=== PATIENT | female | born 1985 | race Caucasian/White ===

== ENCOUNTER → 2020-08-23 13:05 | Outpatient (BNVA) | payer MEDICAID, SELFPAY | PROVIDERS: PCP Family Medicine; Visit Provider Physician Assistant | DX: Z76.89 Persons encountering health services in other specified circumstances (principal) ==

== ENCOUNTER 2020-11-17 07:46 | Outpatient (REF) | payer MEDICAID, SELFPAY ==
[2020-11-17 09:46] LABS: MANUAL DIFF FLAG NO
[2020-11-17 09:56] LABS: Basophils Percent Auto 0.7 % (0-2); Eosinophils Absolute Auto 0.1 X10*3/uL (0.0-0.4); Eosinophils Percent Auto 2.2 % (0-4); Hematocrit 34.6 % (37-47); Hemoglobin 11.1 g/dl (12.0-16.0); Imm Gran Abs Auto 0.01 X10*3/uL (0.00-0.03); Imm Gran Pct Auto 0.2 % (0.0-0.4); Lymphocytes Absolute Auto 2.3 X10*3/uL (1.2-4.9); Lymphocytes Percent Auto 39.7 % (20-40); Mean Corpuscular HGB Conc 32.1 g/dl (31.0-35.0); Mean Corpuscular Hemoglobin 29.5 pg (27.0-33.0); Mean Platelet Volume 10.4 fL (9.4-12.3); Monocytes Absolute Auto 0.5 X10*3/uL (0.1-1.2); Monocytes Percent Auto 8.7 % (2-11); Neutrophils Absolute Auto 2.9 X10*3/uL (2.0-8.3); Neutrophils Percent Auto 48.5 % (45-73); Platelet Count 280 X10*3/uL (160-400); Red Blood Count 3.76 X10*6/uL (4.20-5.50); Red Cell Distribution Width 13.9 % (11.0-16.0); White Blood Count 5.9 X10*3/uL (4.8-10.8)
[2020-11-17 10:43] LABS: Alanine Aminotransferase 10 U/L (0-31); Albumin Level 4.6 g/dL (3.5-5.0); Alkaline Phosphatase 65 U/L (39-117); Anion Gap 15 (12-20); Aspartate Amino Transferase 17 U/L (5-31); Bilirubin Total 0.2 mg/dL (0.0-1.0); Blood Urea Nitrogen 11 mg/dL (9-16); Calcium 9.3 mg/dL (8.4-10.2); Carbon Dioxide 24 mmol/L (22-29); Chloride 108 mmol/L (96-108); Estimated Glomerular Filt Rate > 60; Glucose Random 84 mg/dL (60-115); Potassium 4.1 mmol/L (3.3-5.1); Sodium 143 mmol/L (135-145); Total Protein 7.7 g/dL (6.5-8.0)
== END 2020-11-17 07:47 | disposition home or self-care (01) ==
LOC: HO.LAB 07:46
PROVIDERS: Visit Provider Physician Assistant
DX: R10.13 Epigastric pain (principal); R10.11 Right upper quadrant pain; K21.9 Gastro-esophageal reflux disease without esophagitis; I10 Essential (primary) hypertension; K64.9 Unspecified hemorrhoids; R74.01 Elevation of levels of liver transaminase levels; R14.0 Abdominal distension (gaseous); E04.8 Other specified nontoxic goiter; Z79.899 Other long term (current) drug therapy
CPT/HCPCS: 36415; 80053; 85025; 99212

== ENCOUNTER 2020-12-02 14:16 | Outpatient (REF) | payer MEDICAID, SELFPAY | END 2020-12-02 14:17 | disposition home or self-care (01) | LOC: HO.LNP 14:16 | PROVIDERS: Visit Provider Physician Assistant | DX: A04.8 Other specified bacterial intestinal infections (principal) | CPT/HCPCS: 87338 ==

== ENCOUNTER 2020-12-06 10:55 | Outpatient (REF) | payer MEDICAID, SELFPAY ==
[2020-12-06 17:09] LABS: CT PCR NOT DETECTED (Not Detect.); NG PCR NOT DETECTED (Not Detect.)
[2020-12-07 09:12] LABS: BV Int Neg Control Negative (Negative); BV Int Pos Control Positive (Positive)
== END 2020-12-06 10:56 | disposition home or self-care (01) ==
LOC: HO.LAB 10:55
PROVIDERS: Visit Provider Advanced Practice Midwife
DX: N94.9 Unspecified condition associated with female genital organs and menstrual cycle (principal); R10.2 Pelvic and perineal pain
CPT/HCPCS: 87480; 87491; 87510; 87591; 87660; 99212

== ENCOUNTER → 2020-12-22 09:35 | Outpatient (BNVA) | payer MEDICAID, SELFPAY | PROVIDERS: Visit Provider Physician Assistant | DX: K21.9 Gastro-esophageal reflux disease without esophagitis (principal) | CPT/HCPCS: 99212 ==

== ENCOUNTER 2021-01-02 14:09 | Outpatient (REF) | payer MEDICAID, SELFPAY ==
[2021-01-02 15:29] LABS: Glucose Urine UA NEG (NEG); Leukocyte Esterase Urine NEG (NEG); Nitrite Urine NEG (NEG); PH 6.5 (5.0-8.0); Specific Gravity - Urine <= 1.005 (1.005-1.025); Urine Blood NEG (NEG); Urine Ketones NEG (NEG); Urine Protein NEG (NEG-TRACE)
[2021-01-02 15:31] LABS: Appearance Urine CLEAR; Color Urine STRAW
== END 2021-01-02 14:10 | disposition home or self-care (01) ==
LOC: HO.LAB 14:09
PROVIDERS: Visit Provider Advanced Practice Midwife
DX: R10.2 Pelvic and perineal pain (principal)
CPT/HCPCS: 81003

== ENCOUNTER 2021-01-09 11:47 | Outpatient (REF) | payer MEDICAID, SELFPAY ==
--- NOTE | ~2021-01-09 | US_ITS ---
EXAMINATION: PELVIC ULTRASOUND CLINICAL INFORMATION: Pain. COMPARISON: Previous CT of the pelvis and abdomen May 2018 and pelvic ultrasound December 2017. TECHNIQUE: Transabdominal and transvaginal pelvic ultrasound was performed. Transvaginal exam was performed for better visualization of the uterus and ovaries. FINDINGS: Uterus is anteverted and measures 10.5 x 4.2 x 5.2 cm in dimension. No focal uterine lesion is seen. Endometrial thickness is normal measuring 1.2 cm. There are nabothian cysts in the cervix. The right ovary is enlarged measuring 4.4 x 3.4 x 4.5 cm in dimension, volume 43 mL. There is a 3.8 x 3.3 x 2.6 cm complex right ovarian cyst with multiple reticulations. This may represent a hemorrhagic cyst. The left ovary is normal-appearing and measures 4.2 x 2.1 x 2.5 cm. There are prominent left adnexal vessels questionable for pelvic congestion. There is no fluid in the pelvis. US/US pelvic and transvaginal IMPRESSION: Enlarged right ovary. 3.8 x 3.3 x 2.6 cm complex right ovarian cyst with multiple reticulations. This may represent a hemorrhagic cyst. Prominent left pelvic vessels questionable for pelvic congestion.
== END 2021-01-09 11:48 | disposition home or self-care (01) ==
LOC: HO.US 11:47
PROVIDERS: Visit Provider Advanced Practice Midwife
DX: R10.2 Pelvic and perineal pain (principal)
CPT/HCPCS: 76830; 76856

== ENCOUNTER → 2021-01-11 11:22 | Outpatient (BNVA) | payer MEDICAID, SELFPAY | PROVIDERS: Visit Provider Advanced Practice Midwife ==

== ENCOUNTER 2021-02-21 07:35 | Outpatient (REF) | payer MEDICAID, SELFPAY ==
[2021-02-21 11:43] LABS: MANUAL DIFF FLAG NO
[2021-02-21 12:00] LABS: Basophils Percent Auto 0.5 % (0-2); Eosinophils Absolute Auto 0.1 X10*3/uL (0.0-0.4); Eosinophils Percent Auto 2.6 % (0-4); Hematocrit 33.3 % (37-47); Hemoglobin 10.7 g/dl (12.0-16.0); Imm Gran Abs Auto 0.01 X10*3/uL (0.00-0.03); Imm Gran Pct Auto 0.2 % (0.0-0.4); Lymphocytes Absolute Auto 1.7 X10*3/uL (1.2-4.9); Lymphocytes Percent Auto 39.6 % (20-40); Mean Corpuscular HGB Conc 32.1 g/dl (31.0-35.0); Mean Corpuscular Hemoglobin 29.2 pg (27.0-33.0); Mean Corpuscular Volume 90.7 fL (80-98); Mean Platelet Volume 10.5 fL (9.4-12.3); Monocytes Absolute Auto 0.4 X10*3/uL (0.1-1.2); Monocytes Percent Auto 10.5 % (2-11); Neutrophils Percent Auto 46.6 % (45-73); Platelet Count 275 X10*3/uL (160-400); Red Blood Count 3.67 X10*6/uL (4.20-5.50); Red Cell Distribution Width 13.9 % (11.0-16.0); White Blood Count 4.2 X10*3/uL (4.8-10.8)
[2021-02-21 12:28] LABS: HCG Quantitative < 2 mIU/mL
[2021-02-21 12:29] LABS: Alanine Aminotransferase 9 U/L (0-31); Albumin Level 4.4 g/dL (3.5-5.0); Alkaline Phosphatase 69 U/L (39-117); Anion Gap 12 (12-20); Aspartate Amino Transferase 17 U/L (5-31); Bilirubin Total 0.5 mg/dL (0.0-1.0); Blood Urea Nitrogen 12 mg/dL (9-16); Calcium 9.2 mg/dL (8.4-10.2); Carbon Dioxide 24 mmol/L (22-29); Chloride 110 mmol/L (96-108); Estimated Glomerular Filt Rate > 60; Glucose Random 79 mg/dL (60-115); Potassium 4.1 mmol/L (3.3-5.1); Sodium 142 mmol/L (135-145); Total Protein 7.5 g/dL (6.5-8.0)
== END 2021-02-21 07:36 | disposition home or self-care (01) ==
LOC: HO.LAB 07:35
PROVIDERS: Visit Provider Physician Assistant
DX: R10.11 Right upper quadrant pain (principal); R74.01 Elevation of levels of liver transaminase levels; R11.2 Nausea with vomiting, unspecified; Z78.9 Other specified health status
CPT/HCPCS: 36415; 80053; 84702; 85025

== ENCOUNTER 2021-06-14 11:14 | Day surgery (SDC) | payer MEDICAID, SELFPAY ==
--- NOTE | 2021-06-13 10:33 | HO.ANESPROP2 ---
Documented by User: Lisset Fortune NP 06/13/21 10:36 HPI - Anesthesia Eval Consult details Narrative: 35yo F for Upper Endoscopy PMFSH Active Problems Active Problems: All Active Problems (Updated 02/21/21 @ 08:00 by Violeta Phillips PA-C) Epigastric pain (Acute) Vaginal burning (Acute) Pelvic pain in female (Acute) Complex ovarian cyst (Acute) Nausea and vomiting (Acute) Poor historian (Acute) Diarrhea (Acute) Bloating (Acute) Hemorrhoids (Acute) HTN (hypertension) (Acute) Acid reflux (Acute) Past Medical History Medical History Acid reflux Bloating Hemorrhoids Hernia HTN (hypertension) Family History Family History Mother Hypertension Maternal Grandmother Colon cancer Surgical History Surgical History H/O abdominoplasty H/O colonoscopy History of esophagogastroduodenoscopy (EGD) Hx of tubal ligation Social History Social History Household Members: Children Alcohol intake: never Patient Tobacco Use Status: Former Tobacco user Quit Date: 2009 Tobacco use type: Cigarette Years Smoked: 1 Smoked in Last 30 Days: No Use of substances other than those prescribed or required for medical reasons: No Are you DNR?: No Advance Directives: No Advance Directives Information Provided: No Current occupational status: employed Current occupation: [employer] Allergies Allergy/AdvReac Type Severity Reaction Status Date / Time No Known Allergies Allergy Verified 06/14/21 11:53 [No Known Allergies*] Home Medications Medication Instructions Recorded Confirmed Last Taken Type amlodipine 5 mg tablet 5 mg PO DAILY 11/17/20 03/20/21 Unknown History esomeprazole magnesium 40 mg 40 mg PO DAILY 11/17/20 03/20/21 Unknown History capsule,delayed release aspirin 81 mg tablet,delayed 81 mg PO DAILY 12/06/20 03/20/21 06/09/21 History release Exam Exam Date and Time: June 13, 2021 1033 Pertinent Lab Results Pertinent Lab Results: Laboratory Tests 02/21/21 02/21/21 10:50 10:50 WBC 4.2 L Hgb 10.7 L Hct 33.3 L Plt Count 275 Sodium 142 Potassium 4.1 Chloride 110 H Carbon Dioxide 24 BUN 12 Creatinine 0.74 Assessment and Plan Assessment Anesthesia Assessment: Chart Reviewed Documented by User: Lori Marrufo MD 06/14/21 12:25 PMFSH Past Medical History Medical History Acid reflux Bloating Hemorrhoids Hernia HTN (hypertension) Functional capacity: independent ambulation Patient : No Family History Family History Mother Hypertension Maternal Grandmother Colon cancer Family history of problems with anesthesia: No Surgical History Surgical History H/O abdominoplasty H/O colonoscopy History of esophagogastroduodenoscopy (EGD) Hx of tubal ligation Social History Social History Household Members: Children Alcohol intake: never Patient Tobacco Use Status: Former Tobacco user Quit Date: 2009 Tobacco use type: Cigarette Years Smoked: 1 Smoked in Last 30 Days: No Use of substances other than those prescribed or required for medical reasons: No Are you DNR?: No Advance Directives: No Advance Directives Information Provided: No Current occupational status: employed Current occupation: [employer] Allergies Allergy/AdvReac Type Severity Reaction Status Date / Time No Known Allergies Allergy Verified 06/14/21 11:53 [No Known Allergies*] Home Medications Medication Instructions Recorded Confirmed Last Taken Type amlodipine 5 mg tablet 5 mg PO DAILY 11/17/20 03/20/21 Unknown History esomeprazole magnesium 40 mg 40 mg PO DAILY 11/17/20 03/20/21 Unknown History capsule,delayed release aspirin 81 mg tablet,delayed 81 mg PO DAILY 12/06/20 03/20/21 06/09/21 History release Exam Airway Mallampati Class: II TM Dist: >3cm Heart: RRR Lungs: CTA Assessment and Plan Final Anesthetic Review Family History of Problems with Anesthesia: No
[2021-06-14 11:56] VITALS: BMI 24.1
--- NOTE | 2021-06-14 11:58 | MHC.SHP ---
Pre-Procedural Eval Section A Date of Service: 06/14/21 Section B Chief Complaint: nausea with vomiting Details of Present Illness: CRC in family Relevant Family History (Specify if Yes): Yes Relevant Social History: None Present Medications: see Short Stay Collaborative assessment Medical History: Significant History (Acid reflux Bloating Hemorrhoids Hernia HTN (hypertension)) History of Previous Operations: Relevant previous surgery/procedure and date(s) (H/O abdominoplasty H/O colonoscopy History of esophagogastroduodenoscopy (EGD) Hx of tubal ligation) Allergies: Allergies Allergy/AdvReac Type Severity Reaction Status Date / Time No Known Allergies Allergy Verified 06/14/21 11:53 [No Known Allergies*] Review of Systems Sugical H&P ROS: Negative: Constitution, Cardiovascular, Respiratory, Neurological, Psychiatric, Hem-Onc, Allergic/Immunologic, Gastrointestinal, Genitourinary, Musculoskeletal, Integumentary, Endocrine and Eyes/Ears/Nose/Throat Exam Surgical H&P Exam: Normal: HEENT, Normal: Heart, Normal: Lungs, Normal: Extremities, Normal: Abdomen, Normal: Skin and Normal: Neurological Plan Diagnosis/Plan: Unchanged I have reviewed the history and physical and performed a pertinent physical examination on my patient. No changes have occurred unless specified.
[2021-06-14 12:15] VITALS: BP 139/96; PULSE 95; RESP 16; TEMP 36.8; O2SAT 100
[2021-06-14] MEDS: Lactated Ringers 1,000 ML 100 ML IVCONT (12:16)
--- NOTE | 2021-06-14 12:42 | P.BOP_ITS ---
Brief Operative Note Date of Service: 06/14/21 Pre-op diagnosis: screening Post-op diagnosis: same Procedure: see op note Surgeon: Lindsay Macias MD Anesthesia: MAC Was an Photocomposition Keyboard Operator used for this Procedure?: No Estimated blood loss (mL): 0 Condition: stable Disposition: PACU
--- NOTE | 2021-06-14 12:42 | W.PM.OPN ---
Operative Note Operative Note Date of Service: 06/14/21 Narrative: Procedure Description: EGD FLEXIBLE TRANSORAL UPPER GASTROINTESTINAL ENDOSCOPY UPPER ENDOSCOPY Consent: Indications for the procedure and potential complications of bleeding, perforation, reaction to medications and missed diagnosis were discussed with the patient and informed consent was obtained. Instrument: Olympus GIF H 190 J mid size upper endoscope Monitoring: Vital signs and clinical assessment, continuous EKG monitoring, Pulse oximetry, Carbon Dioxide monitoring and blood pressure monitoring were done throughout the procedure. Procedure: The patient was placed in the left lateral decubitis position and pre-procedure medications were administered and a bite block was placed. The endoscope was inserted into the mouth and advanced under direct vision to the third part of duodenum. A careful inspection was made as the upper endoscope was withdrawn including a retroflexed examination of the proximal stomach; Findings and interventions are described below. Findings: Larynx:normal Esophagus: GE junction at 38 cm, diaphragm hiatus at 38 cm, LA grade A esophagitis note,d bx taken from GEJ and random esophagus. Small esophageal inlet patch noted Stomach: Patchy gastric erythema and atrophic areas. Biopsies were obtained. Grade 2 flap valve on retroflexed examination of the cardia. Duodenum: Normal bulb and descending duodenum, bx taken Intervention: Biopsies as noted above Impression/Findings: gastritis esophagitis inlet patch of esophagus PLAN: await bx results check PPI compliance
--- NOTE | 2021-06-14 13:01 | HO.ANESPROP2 ---
[facility] Active Problems Active Problems: All Active Problems (Updated 02/21/21 @ 08:00 by Violeta Phillips PA-C) Epigastric pain (Acute) Vaginal burning (Acute) Pelvic pain in female (Acute) Complex ovarian cyst (Acute) Nausea and vomiting (Acute) Poor historian (Acute) Diarrhea (Acute) Bloating (Acute) Hemorrhoids (Acute) HTN (hypertension) (Acute) Acid reflux (Acute) Past Medical History Medical History Acid reflux Bloating Hemorrhoids Hernia HTN (hypertension) Functional capacity: independent ambulation Family History Family History Mother Hypertension Maternal Grandmother Colon cancer Family history of problems with anesthesia: No Surgical History Surgical History H/O abdominoplasty H/O colonoscopy History of esophagogastroduodenoscopy (EGD) Hx of tubal ligation History of Problems with Anesthesia: No Social History Social History Household Members: Children Alcohol intake: never Patient Tobacco Use Status: Former Tobacco user Quit Date: 2009 Tobacco use type: Cigarette Years Smoked: 1 Smoked in Last 30 Days: No Use of substances other than those prescribed or required for medical reasons: No Are you DNR?: No Advance Directives: No Advance Directives Information Provided: No Patient : No Current occupational status: employed Current occupation: [employer] Allergies Allergy/AdvReac Type Severity Reaction Status Date / Time No Known Allergies Allergy Verified 06/14/21 11:53 [No Known Allergies*] Active Medications: Current Medications Lactated Ringer's (Lr) 1,000 mls @ 100 mls/hr IVCONT .Q10H WAYNE Last Admin: 06/14/21 12:16 Dose: 100 mls/hr Documented by: Home Medications Medication Instructions Recorded Confirmed Last Taken Type amlodipine 5 mg tablet 5 mg PO DAILY 11/17/20 03/20/21 Unknown History esomeprazole magnesium 40 mg 40 mg PO DAILY 11/17/20 03/20/21 Unknown History capsule,delayed release aspirin 81 mg tablet,delayed 81 mg PO DAILY 12/06/20 03/20/21 06/09/21 History release Exam Exam Date and Time: June 14, 2021 1301 Height,Weight and Vital Signs: Height 5 ft 1 in Weight 58.06 kg Last Vital Signs Temp 98.2 F 06/14/21 12:15 Pulse 95 06/14/21 12:15 Resp 16 06/14/21 12:15 BP 139/96 H 06/14/21 12:15 Pulse Ox 100 06/14/21 12:15 Airway Mallampati Class: II TM Dist: >3cm Neck ROM: Full Heart: RRR Lungs: CTA Assessment and Plan Final Anesthetic Review Family History of Problems with Anesthesia: No History of Problems with Anesthesia: No
[2021-06-14 13:14] VITALS: BP 127/68; PULSE 109; RESP 16; TEMP 37.4; O2SAT 98
[2021-06-14 13:40] VITALS: BP 159/75; PULSE 82; RESP 18; TEMP 37.4; O2SAT 99
--- NOTE | 2021-06-14 14:24 | HO.POSTANES ---
Post Anesthesia Evaluation Post Anesthesia Evaluation Vital Signs: Vital Signs Temp Pulse Resp BP Pulse Ox 06/14/21 13:40 99.3 F 82 18 159/75 H 99 06/14/21 13:14 99.3 F 109 H 16 127/68 98 06/14/21 12:15 98.2 F 95 16 139/96 H 100 Anesthesia: Monitored Mental Status: Awake Pain Control: Satisfactory Nausea/Vomiting: None Hydration: Adequate Anesthesia-Related Issues: No Anes. Related Issues
== END 2021-06-14 14:22 | disposition home or self-care (01) ==
PROVIDERS: Visit Provider Internal Medicine Gastroenterology
PROC: 0DJ08ZZ Inspection of Upper Intestinal Tract, Via Natural or Artificial Opening Endoscopic (ICD-10-PCS; CPT 43235; principal; 2021-06-14 12:40)
DX: K29.50 Unspecified chronic gastritis without bleeding (principal); K20.90 Esophagitis, unspecified without bleeding; K21.9 Gastro-esophageal reflux disease without esophagitis; K44.9 Diaphragmatic hernia without obstruction or gangrene; Q39.8 Other congenital malformations of esophagus; I10 Essential (primary) hypertension; Z79.82 Long term (current) use of aspirin; Z79.899 Other long term (current) drug therapy; Z87.891 Personal history of nicotine dependence
CPT/HCPCS: 43239; 88305; 88342

== ENCOUNTER → 2021-11-15 13:36 | Outpatient (BNVA) | payer MEDICAID, SELFPAY | PROVIDERS: Visit Provider Physician Assistant | DX: K22.70 Barrett's esophagus without dysplasia (principal); K59.00 Constipation, unspecified | CPT/HCPCS: 99212 ==

== ENCOUNTER → 2021-11-27 13:41 | Outpatient (BNVA) | payer MEDICAID, SELFPAY | PROVIDERS: Visit Provider Physician Assistant | DX: Z13.89 Encounter for screening for other disorder (principal) ==

== ENCOUNTER 2021-11-27 14:15 | Outpatient (REF) | payer MEDICAID, SELFPAY ==
[2021-11-29 08:34] LABS: H Pylori Breath Test Negative (Negative)
== END 2021-11-27 14:16 | disposition home or self-care (01) ==
LOC: HO.LNP 14:15
PROVIDERS: Visit Provider Physician Assistant
DX: Z11.0 Encounter for screening for intestinal infectious diseases (principal)
CPT/HCPCS: 83013

== ENCOUNTER → 2021-11-28 13:23 | Outpatient (BNVA) | payer MEDICAID, SELFPAY | PROVIDERS: Visit Provider Physician Assistant | DX: Z13.89 Encounter for screening for other disorder (principal) ==

== ENCOUNTER → 2022-03-15 13:53 | Outpatient (BNVA) | payer MEDICAID, SELFPAY | PROVIDERS: PCP Internal Medicine; Visit Provider Physician Assistant | DX: K52.9 Noninfective gastroenteritis and colitis, unspecified (principal); K59.00 Constipation, unspecified; K22.70 Barrett's esophagus without dysplasia; R19.7 Diarrhea, unspecified; K64.9 Unspecified hemorrhoids; K21.9 Gastro-esophageal reflux disease without esophagitis | CPT/HCPCS: 99212 ==

== ENCOUNTER → 2022-04-26 12:25 | Outpatient (BNVA) | payer MEDICAID, SELFPAY | PROVIDERS: PCP Internal Medicine; Referring Provider Internal Medicine; Visit Provider Physician Assistant | DX: K21.9 Gastro-esophageal reflux disease without esophagitis (principal); K59.00 Constipation, unspecified; K22.70 Barrett's esophagus without dysplasia; Z79.899 Other long term (current) drug therapy | CPT/HCPCS: 99212 ==

== ENCOUNTER 2022-10-16 10:26 | Day surgery (SDC) | payer MEDICAID, SELFPAY ==
[2022-09-13 10:43] VITALS: BMI 25.7
[2022-10-16 11:00] VITALS: BP 123/85; PULSE 87; RESP 15; TEMP 36.7; O2SAT 99
[2022-10-16] MEDS: Lactated Ringers 1,000 ML 50 ML IVCONT (11:14)
--- NOTE | 2022-10-16 11:41 | MHC.SHP ---
Pre-Procedural Eval Section A Date of Service: 10/16/22 Section B Chief Complaint: barretts,reflux Details of Present Illness: 37y.o F with bx proven BE at [facility] albeit in background of esophagitis here for EGD +/- rodriguez PMH: Acid reflux Bloating Hemorrhoids Hernia HTN (hypertension) Surg Hx: H/O abdominoplasty H/O colonoscopy History of esophagogastroduodenoscopy (EGD) Hx of tubal ligation Relevant Family History (Specify if Yes): No Relevant Social History: None Present Medications: see Short Stay Collaborative assessment Medical History: Significant History (as above ) History of Previous Operations: Relevant previous surgery/procedure and date(s) (as above ) Allergies: Allergies Allergy/AdvReac Type Severity Reaction Status Date / Time No Known Allergies Allergy Verified 10/16/22 11:21 [No Known Allergies*] Review of Systems Review of Systems Comment: Ten point ROS negative Exam Exam Comment: Gen appear: No acute distress HEENT: no icterus Chest: No overt resp distress Abd: soft, nontender, nondistended Psych: Stable affect, answering questions appropriately Neuro: A/Ox3 noted to move all extremities spontaneously Ext: no peripheral edema Plan Diagnosis/Plan: Unchanged I have reviewed the history and physical and performed a pertinent physical examination on my patient. No changes have occurred unless specified. Time Spent With Patient Time: Total time managing care of this patient today ____ minutes.
--- NOTE | 2022-10-16 12:32 | P.OP_ITS ---
Operative Note Operative Note Date of Service: 10/16/22 Narrative: Procedure: Esophagogastroduodenoscopy Endoscopist: Toyin Zambrano MD Indication: Tran's esophagus Anesthesia Provider: Dr Betsy Vasquez Anesthesia Type: MAC ?? EGD Procedure:?? The procedure, indications, preparation and potential complications were rev iewed with the patient, who indicated understanding and gave written informed consent to proceed. A conference interpreter assisted with the encounter. A physical exam was performed. A distal attachment cap was affixed to the tip of the gastroscope and it was the endoscope was then introduced through the mouth, and advanced to the second part of duodenum. The mucosa was carefully examined on slow withdrawal of the endoscope. The patient tolerated the procedure well. There were no immediate complications.? ? EGD Findings:? * Esophagus:? The Z line was at 38 cm. [place] pink colored mucosa extended beyond the Z line to 36 cm. Villous changes were noted on high definition white light and narrow band imaging. There was also a 1 cm nodule seen just at the GEJ at 38 cm. Cold forceps biopsies were taken from the nodule, 37 cm and 36 cm. Additionally, WATS-3D sampling was obtained and sent to [facility]. * Stomach:? Normal mucosa was noted in the stomach. Random gastric biopsies were taken to rule out H Pylori infection. * Duodenum:? Normal mucosa was noted in the whole of the examined duodenum. Biopsies were taken from duodenal bulb and second portion of the duodenum to rule out celiac sprue. ? EGD Impressions:? * Esophageal nodule (biopsy) (wats-3d) * R/o tran's with dysplasia * Normal stomach (biopsy) * Normal duodenum (biopsy) ?? Recommendations:?? * Follow biopsy results. Our office will call or send a letter with results within 7-10 days. * If presence of dysplasia is confirmed, pt will need EMR +/- ablation for treatment. * Continue PPI therapy. * Avoid NSAIDs. Above has been reviewed with the patient. Relevant educational hand outs were provided at discharge.
[2022-10-16 12:36] VITALS: BP 94/55; PULSE 98; RESP 16; TEMP 36.2; O2SAT 100
--- NOTE | 2022-10-16 12:49 | P.CONAN_ITS ---
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 (Acute) Constipated (Acute) Gastroenteritis (Acute) Bloating (Acute) Hemorrhoids (Acute) HTN (hypertension) (Acute) Acid reflux (Acute) Past Medical History Medical History Acid reflux Bloating Hemorrhoids Hernia HTN (hypertension) Family History Family History Mother Hypertension Maternal Grandmother Colon cancer Family history of problems with anesthesia: No Surgical History Surgical History H/O colonoscopy History of esophagogastroduodenoscopy (EGD) Hx of hernia repair Hx of tubal ligation History of Problems with Anesthesia: No Social History Social History Household Members: Children Alcohol intake: never Patient Tobacco Use Status: Former Tobacco user Quit Date: 2009 Tobacco use type: Cigarette Years Smoked: 1 Use of substances other than those prescribed or required for medical reasons: No Are you DNR?: No Advance Directives: No Advance Directives Information Provided: Yes Current occupational status: employed Current occupation: [employer] Allergies Allergy/AdvReac Type Severity Reaction Status Date / Time No Known Allergies Allergy Verified 10/16/22 11:21 [No Known Allergies*] Active Medications: Current Medications Lactated Ringer's (Lr) 1,000 mls @ 50 mls/hr IVCONT .Q20H WAYNE Last Admin: 10/16/22 11:14 Dose: 50 mls/hr Home Medications Medication Instructions Recorded Confirmed Last Taken Type amlodipine 5 mg tablet 10 mg PO DAILY 11/17/20 10/16/22 Unknown History aspirin 81 mg tablet,delayed 81 mg PO DAILY 12/06/20 10/16/22 10/09/22 History release Exam Exam Date and Time: October 16, 2022 1249 Height,Weight and Vital Signs: Height 5 ft 1 in Weight 61.689 kg Last Vital Signs Temp 98.0 F 10/16/22 11:00 Pulse 87 10/16/22 11:00 Resp 15 10/16/22 11:00 BP 123/85 10/16/22 11:00 Pulse Ox 99 10/16/22 11:00 O2 Del Method 10/16/22 11:00 Airway Mallampati Class: II TM Dist: >3cm Neck ROM: Full Heart: rr Lungs: cta Assessment and Plan Final Anesthetic Review Family History of Problems with Anesthesia: No History of Problems with Anesthesia: No ASA Class: II Final Preanesthetic Review: No Changes in Pt Med Stat, Meds/Allgs Chart Reviewed, Consent Obtained/Reviewed and Anes Risks/Benef Reviewed Patient Risk: Low Procedure Risk: Low Anesthetic Plan Anesthetic Plan: MAC: Disposition: Standard PACU
[2022-10-16 12:51] VITALS: BP 101/73; PULSE 101; RESP 16; O2SAT 98
--- NOTE | 2022-10-16 12:52 | P.CONAN_ITS ---
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 (Acute) Constipated (Acute) Gastroenteritis (Acute) Bloating (Acute) Hemorrhoids (Acute) HTN (hypertension) (Acute) Acid reflux (Acute) Past Medical History Medical History Acid reflux Bloating Hemorrhoids Hernia HTN (hypertension) Family History Family History Mother Hypertension Maternal Grandmother Colon cancer Family history of problems with anesthesia: No Surgical History Surgical History H/O colonoscopy History of esophagogastroduodenoscopy (EGD) Hx of hernia repair Hx of tubal ligation History of Problems with Anesthesia: No Social History Social History Household Members: Children Alcohol intake: never Patient Tobacco Use Status: Former Tobacco user Quit Date: 2009 Tobacco use type: Cigarette Years Smoked: 1 Use of substances other than those prescribed or required for medical reasons: No Are you DNR?: No Advance Directives: No Advance Directives Information Provided: Yes Current occupational status: employed Current occupation: [employer] Allergies Allergy/AdvReac Type Severity Reaction Status Date / Time No Known Allergies Allergy Verified 10/16/22 11:21 [No Known Allergies*] Active Medications: Current Medications Lactated Ringer's (Lr) 1,000 mls @ 50 mls/hr IVCONT .Q20H WAYNE Last Admin: 10/16/22 11:14 Dose: 50 mls/hr Home Medications Medication Instructions Recorded Confirmed Last Taken Type amlodipine 5 mg tablet 10 mg PO DAILY 11/17/20 10/16/22 Unknown History aspirin 81 mg tablet,delayed 81 mg PO DAILY 12/06/20 10/16/22 10/09/22 History release Exam Exam Date and Time: October 16, 2022 1252 Height,Weight and Vital Signs: Height 5 ft 1 in Weight 61.689 kg Last Vital Signs Temp 97.2 F 10/16/22 12:36 Pulse 98 10/16/22 12:36 Resp 16 10/16/22 12:36 BP 94/55 L 10/16/22 12:36 Pulse Ox 100 10/16/22 12:36 O2 Del Method 10/16/22 12:36 O2 Flow Rate 4 10/16/22 12:36 Assessment and Plan Final Anesthetic Review Family History of Problems with Anesthesia: No History of Problems with Anesthesia: No NPO: Yes ASA Class: II Final Preanesthetic Review: No Changes in Pt Med Stat, Meds/Allgs Chart Reviewed, Consent Obtained/Reviewed and Anes Risks/Benef Reviewed Patient Risk: Low Procedure Risk: Low Anesthetic Plan Anesthetic Plan: MAC: Disposition: Standard PACU
[2022-10-16 13:06] VITALS: BP 116/82; PULSE 86; RESP 16; O2SAT 98
== END 2022-10-16 14:26 | disposition home or self-care (01) ==
PROVIDERS: PCP Internal Medicine; Visit Provider Internal Medicine
PROC: 0DJ08ZZ Inspection of Upper Intestinal Tract, Via Natural or Artificial Opening Endoscopic (ICD-10-PCS; CPT 43235; principal; 2022-10-16 11:30)
DX: K21.9 Gastro-esophageal reflux disease without esophagitis (principal); K22.70 Barrett's esophagus without dysplasia; K22.89 Other specified disease of esophagus; K20.80 Other esophagitis without bleeding; I10 Essential (primary) hypertension; K59.00 Constipation, unspecified; Z79.82 Long term (current) use of aspirin; Z79.899 Other long term (current) drug therapy; Z87.891 Personal history of nicotine dependence
CPT/HCPCS: 43235; 88305; 88342; J2250

== ENCOUNTER → 2022-10-29 14:07 | Outpatient (BNVA) | payer MEDICAID, SELFPAY | PROVIDERS: PCP Internal Medicine; Visit Provider Physician Assistant | DX: K22.70 Barrett's esophagus without dysplasia (principal); K20.90 Esophagitis, unspecified without bleeding; Z98.890 Other specified postprocedural states | CPT/HCPCS: 99212 ==

== ENCOUNTER 2023-01-10 14:24 | Outpatient (REF) | payer MEDICAID, SELFPAY ==
--- NOTE | ~2023-01-10 | US_ITS ---
EXAMINATION: MM DIAGNOSTIC DIGITAL BREAST TOMOSYNTHESIS, BILATERAL US DIAGNOSTIC ULTRASOUND BREAST, RIGHT CLINICAL INFORMATION: 37-year-old with proximally 1 month history upper right breast pain. No palpable mass or discharge. The lifetime risk of breast cancer based on the Tyrer-Cuzick Model is 8%. COMPARISON: Mammography and bilateral breast ultrasound 01/11/2017. TECHNIQUE: Digital breast tomosynthesis is performed in both the craniocaudal and mediolateral oblique views along with computer-aided detection (CAD). Synthesized 2D images are generated from the tomosynthesis. Ultrasound right breast is targeted to the areas of clinical concern using grayscale imaging and color Doppler without and with harmonics. Patient is able to point to the area at time of imaging. FINDINGS: The breasts are heterogeneously dense, which may obscure small masses (ACR BI-RADS breast composition Category c). There is mild bilateral decreased breast size and mild increased breast tissue density when compared with prior exam 2017 consistent with mild weight loss as confirmed with patient. There is no significant mass or architectural abnormality. No developing density or abnormal calcifications. No skin thickening or coarsening of the Jarrett's ligaments. The axilla are unremarkable. Ultrasound demonstrates no cystic or solid mass or architectural abnormality. No hyperemia. No focal duct ectasia. No skin thickening or edema tracking in soft tissue planes. Results are discussed with the patient at time of visit, using an hydraulic pile hammer operator. US/US breast RT limited IMPRESSION: -No mammographic evidence of malignancy or inflammatory changes. -Unremarkable right breast ultrasound. ASSESSMENT: BI-RADS 2: Benign RECOMMENDATION: 1. Patient's right mastodynia should be managed based on the clinical impression. 2. Otherwise, routine annual screening mammography. This patient's information was entered into a reminder system with a target due date for their next mammogram.
== END 2023-01-10 14:25 | disposition home or self-care (01) ==
LOC: HO.MAMMO 14:24
PROVIDERS: Absent Provider Internal Medicine; PCP Internal Medicine; Referring Provider Internal Medicine; Visit Provider Advanced Practice Midwife
DX: N64.4 Mastodynia (principal)
CPT/HCPCS: 76642; 77062; 77066

== ENCOUNTER 2023-05-20 13:57 | Outpatient (REF) | payer MEDICAID, SELFPAY ==
[2023-05-20 15:00] LABS: MANUAL DIFF FLAG NO
[2023-05-20 15:28] LABS: Basophils Percent Auto 0.6 % (0-2); Eosinophils Absolute Auto 0.2 X10*3/uL (0.0-0.4); Eosinophils Percent Auto 2.7 % (0-4); Hemoglobin 12.2 g/dl (12.0-16.0); Imm Gran Abs Auto 0.01 X10*3/uL (0.00-0.03); Imm Gran Pct Auto 0.1 % (0.0-0.4); Lymphocytes Absolute Auto 2.7 X10*3/uL (1.2-4.9); Lymphocytes Percent Auto 40.1 % (20-40); Mean Corpuscular Hemoglobin 30.3 pg (27.0-33.0); Mean Platelet Volume 10.3 fL (9.4-12.3); Monocytes Absolute Auto 0.5 X10*3/uL (0.1-1.2); Monocytes Percent Auto 7.2 % (2-11); Neutrophils Absolute Auto 3.3 x10*3/uL (2.0-8.3); Neutrophils Percent Auto 49.3 % (45-73); Platelet Count 253 X10*3/uL (160-400); Red Blood Count 4.02 X10*6/uL (4.20-5.50); Red Cell Distribution Width 13.2 % (11.0-16.0); White Blood Count 6.8 X10*3/uL (4.8-10.8)
[2023-05-20 16:01] LABS: Alanine Aminotransferase 9 U/L (0-31); Albumin Level 4.6 g/dL (3.5-5.0); Alkaline Phosphatase 61 U/L (39-117); Anion Gap 13 (12-20); Aspartate Amino Transferase 15 U/L (5-31); Bilirubin Total 0.3 mg/dL (0.0-1.0); Blood Urea Nitrogen 10 mg/dL (9-16); Calcium 9.5 mg/dL (8.4-10.2); Carbon Dioxide 22 mmol/L (22-29); Chloride 109 mmol/L (96-108); Estimated Glomerular Filt Rate > 60; Glucose Random 82 mg/dL (60-115); Potassium 3.9 mmol/L (3.3-5.1); Sodium 140 mmol/L (135-145); Total Protein 7.9 g/dL (6.5-8.0)
== END 2023-05-20 13:58 | disposition home or self-care (01) ==
LOC: HO.LAB 13:57
PROVIDERS: PCP Internal Medicine; Visit Provider Physician Assistant
DX: R10.11 Right upper quadrant pain (principal); K22.70 Barrett's esophagus without dysplasia; K21.9 Gastro-esophageal reflux disease without esophagitis
CPT/HCPCS: 36415; 80053; 85025; 99212

== ENCOUNTER 2023-05-20 13:57 | Outpatient (AMB) | payer MEDICAID, SELFPAY ==
--- NOTE | 2023-05-20 14:03 | MHC.OFFVIS ---
Intake Vital Signs 05/20/23 14:09 Height 5 ft 1 in Weight 130 lb BMI 24.6 BP 122/78 Blood Pressure Location Lt brachial Position Sitting Pulse 90 Intake Visit Reasons: follow up for Chronic GERD Intake Note: Patient follow up for Chronic GERD. Patient cc: abdominal pain, acid reflex, and constipation. Denies any other GI issues. Race And Sports Book Writer Required: No Race And Sports Book Writer Name: [facility] [place] Accompanied by: Self / Same As Patient Allergies No Known Allergies [No Known Allergies*] Allergy (Verified 05/20/23 14:03) HPI HPI Comments History of Present Illness Details 37-year-old female follows up with Gerd- she has acid- omeprazole Q am-- for the past couple weeks sx seem to be worse-no nausea-or vomiting RUQ pain seems to come and go today pain seems to be a bit better - very minor discomfort No nausea, vomiting, hematemesis, hematochezia fever or chills. PFSH Medical History Acid reflux Bloating Hemorrhoids Hernia HTN (hypertension) Surgical History Hx of hernia repair History of esophagogastroduodenoscopy (EGD) H/O colonoscopy Hx of tubal ligation Family History Mother Hypertension Maternal Grandmother Colon cancer Social History Household Members: Children Alcohol intake: never Patient Tobacco Use Status: Former Tobacco user Quit Date: 2009 Tobacco use type: Cigarette Years Smoked: 1 Current occupational status: employed Current occupation: [employer] Review of Systems Const All systems reviewed & are unremarkable except as noted in HPI and below Card Denies chest pain and Denies dyspnea Resp Denies dyspnea GI Reports heartburn Physical Exam Vital Signs: Last Vital Signs Pulse 90 05/20/23 14:09 BP 122/78 05/20/23 14:09 BMI result Body Mass Index 24.6 Const General: cooperative, healthy appearing and comfortable Orientation/consciousness: patient oriented x3 Limitations: language barrier Eyes Sclerae: sclerae normal Resp Effort & Inspection: normal respiratory effort and able to speak in complete sentences Auscultation: clear to auscultation bilaterally and no wheezes Cardio Rate: regular rate Rhythm: regular rhythm Heart sounds: S1 normal heart sound present and S2 normal heart sound present GI Palpation (GI): Soft to palpation and nontender Auscultation: normal bowel sounds Skin General skin exam: no rashes or lesions noted Neuro General: patient oriented x3 Extrem General: Yes full ROM Psych Appearance: well kempt Speech and movement: Clear speech present Affect: Labile affect present Attitude: cooperative Thought process: Normal thought process present Thought content: Normal thought content present Results Reviewed Results Reviewed: Name:?Misha Zarate/Sex: 37/FAttending: Toyin Zambrano MD : 1985Submitted by: Toyin Zambrano MD to: Ekta Perez MD MR #: [id number]? Status: DEP SDCCollected: 10/16/22 [facility] Diagnosis A.? Duodenum, biopsy:? Duodenal mucosa with mildly increased intraepithelial lymphocytes and preserved villous architecture.? See comment. B.? Stomach, random, biopsy:? Antral-type and oxyntic mucosa with mild chronic inactive inflammation; no Helicobacter organisms seen. C.? Esophagus, 36 cm, biopsy: - Cardiac-type mucosa with moderate chronic, focally active, inflammation; no intestinal metaplasia seen. - Squamous mucosa within normal limits. D.? Esophagus, 37 cm, biopsy: - Cardiofundic-type mucosa with mild chronic inactive inflammation; no intestinal metaplasia seen. - Chronic esophagitis. E.? GE junction, nodule, biopsy: - Cardiofundic-type mucosa with mild chronic inactive inflammation; no intestinal metaplasia seen. - No squamous epithelium identified. COMMENT: The findings in the duodenum are non-specific.? The differential diagnosis is broad and includes infection (e.g. viral or H. pylori), medication/drugs (e.g. NSAIDs), gluten sensitivity/celiac disease, bacterial overgrowth, tropical sprue, immunodeficiency syndromes (e.g. IgA deficiency, CVID), autoimmune enteropathy, Crohns and collagen vascular disease, among others.? Please correlate with clinical and other laboratory findings.? 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 Panel 05/20/23 R10.11 - Right upper quadrant pain Complete Blood Count Auto Diff 05/20/23 R10.11 - Right upper quadrant pain Medications: New sucralfate 1 g PO BID 4 weeks PRN 56 tabs 0RF reflux Patient Instructions: trial carafate bid continue esomeprazole 40 mg QD RUQ Us Avoid culprits-remain upright 2-3 hours after eating Reviewed reflux precautions Coding Level of Care Code Est Pt Level 3 (78807) Diagnoses RUQ pain R10.11 Augustin's esophagus determined by endoscopy K22.70 Acid reflux K21.9 Time Spent (min) 30 Comment spanish interpreter
[2023-05-20 14:09] VITALS: BP 122/78; PULSE 90; BMI 24.6
== END 2023-05-20 15:29 | disposition home or self-care (01) ==
PROVIDERS: PCP Internal Medicine; Visit Provider Physician Assistant
DX: R10.11 Right upper quadrant pain (principal); K22.70 Barrett's esophagus without dysplasia; K21.9 Gastro-esophageal reflux disease without esophagitis
CPT/HCPCS: 99213

== ENCOUNTER 2023-05-31 13:46 | Outpatient (REF) | payer MEDICAID, SELFPAY | END 2023-05-31 13:47 | disposition home or self-care (01) | LOC: HO.US 13:46 | PROVIDERS: PCP Internal Medicine; Visit Provider Physician Assistant | DX: R10.11 Right upper quadrant pain (principal); K22.70 Barrett's esophagus without dysplasia; K21.9 Gastro-esophageal reflux disease without esophagitis | CPT/HCPCS: 76700 ==

== ENCOUNTER 2023-07-01 13:41 | Outpatient (AMB) | payer MEDICAID, SELFPAY ==
--- NOTE | 2023-07-01 13:54 | A.OFFVIS_ITS ---
Intake Vital Signs 07/01/23 13:55 Height 5 ft 1 in Weight 138 lb 0.15 oz BMI 26.1 BP 120/70 Blood Pressure Location Lt brachial Position Sitting Pulse 86 Intake Visit Reasons: 6 weekfollow up Intake Note: Patient returns in follow up of US and labs. CC: Patient reports feeling a little bit better from abdominal pain and acid reflux. Denies any other GI issues. Topline Beading Machine Tender Required: No Accompanied by: Self / Same As Patient Allergies No Known Allergies [No Known Allergies*] Allergy (Verified 07/01/23 13:57) Medication List - Last Reconciled 07/01/23 by Violeta Phillips PA-C amlodipine 10 mg PO DAILY aspirin 81 mg PO DAILY esomeprazole magnesium 40 mg PO DAILY 30 days sucralfate 1 g PO BID PRN HPI HPI Comments History of Present Illness Details A 37 y/o female f/u for gerd-she feeling better- but has gas-she does not want to take a lot of pills- She has not a great appetite ( wt up per recoed documentation) , has bloating and gas- She has many questions- she had a colonoscopy 2018- normal- just hemorrhoids they are bothersome- no intervention-in the DR She is pretty much convinced there is something in the colon, and intermittent bright red blood on the stool, requesting colonoscopy Reviewed ultrasound US/US abdomen complete IMPRESSION: 1. A 0.2 cm gallbladder polyp. 2. Mild diffuse increase in heterogeneit y and echogenicity of the liver is characteristic of primary hepatocellular disease, possibly due to hepatic steatosis and further limits visualization. 3. Borderline mild left renal caliectasi s. No renal calculi. No nausea, vomiting hematemesis, hematochezia fever chills PFSH Medical History Acid reflux Bloating Hemorrhoids Hernia HTN (hypertension) Surgical History Hx of hernia repair History of esophagogastroduodenoscopy (EGD) H/O colonoscopy Hx of tubal ligation Family History Mother Hypertension Maternal Grandmother Colon cancer Social History Household Members: Children Alcohol intake: never Patient Tobacco Use Status: Former Tobacco user Quit Date: 2009 Tobacco use type: Cigarette Years Smoked: 1 Current occupational status: employed Current occupation: [employer] Review of Systems Const All systems reviewed & are unremarkable except as noted in HPI and below Card Denies chest pain and Denies dyspnea Resp Denies dyspnea GI Reports bloating, Reports hematochezia (Intermittent), Reports constipation and Reports GI cramping Psych Reports anxiety Physical Exam Vital Signs: Last Vital Signs Pulse 86 07/01/23 13:55 BP 120/70 07/01/23 13:55 BMI result Body Mass Index 26.1 Const General: cooperative, healthy appearing, comfortable, no acute distress and anxious Orientation/consciousness: patient oriented x3 Limitations: language barrier GI Palpation (GI): Soft to palpation (Mild, Diffuse,), Tenderness to palpation present (GI) and no guarding Skin General skin exam: no rashes or lesions noted Neuro General: patient oriented x3 Extrem General: Yes full ROM Psych Appearance: grossly normal and well kempt Affect: Labile affect present and Indifferent affect present Attitude: cooperative Results Reviewed Results Reviewed: US/US abdomen complete IMPRESSION: 1. A 0.2 cm gallbladder polyp. 2. Mild diffuse increase in heterogeneity and echogenicity of the liver is characteristic of primary hepatocellular disease, possibly due to hepatic steatosis and further limits visualization. 3. Borderline mild left renal caliectasis. No renal calculi. Assessment & Plan Assessment & Plan (1) Bloating: Comment: gas x ,fodmap Code(s): R14.0 - Abdominal distension (gaseous) Plan: Literature given Reviewed (2) NAFLD (nonalcoholic fatty liver disease): Code(s): K76.0 - Fatty (change of) liver, not elsewhere classified Plan: Lifestyle dietary changes (3) Gallbladder polyp: Comment: 0.2cm ntd- monitor for size- U/S 1 yr- normal enzymes Code(s): K82.4 - Cholesterolosis of gallbladder Plan: U/S 1 yr- (4) Constipated: Comment: Maintain high-fiber diet, fiber supplements Citrucel , colace 100mg Code(s): K59.00 - Constipation, unspecified (5) History of hemorrhoids: Comment: Extremely anxious Bleeding likely hemorrhoidal Code(s): Z87.19 - Personal history of other diseases of the digestive system Plan: Maintain high-fiber diet Avoid straining Plan colonoscopy Orders: Orders Colonoscopy - GI Use Only 07/01/23 K59.00 - Constipation, unspecified, Z87.19 - Personal history of other diseases of the digestive system Medications: New polyethylene glycol 3350 (Miralax) Take as directed by mouth the day before your procedure. 238 grams PO ONCE 1 day 238 grams 0RF laxative effect simethicone (Gas Relief (simethicone)) 125 mg PO TID-QID PRN 90 tabs 2RF abdominal distention bisacodyl (Dulcolax (bisacodyl)) Day before procedure, prep day Take 4 tablets by mouth upon awakening followed by large glass of water 20 mg (4 x 5 mg) PO ONCE 1 day 4 tabs 0RF colonoscopy prep Z12.11 - Encounter for screening for malignant neoplasm of colon Patient Instructions: Diagnostic colonoscopy Relax Gatorade prep Avoid straining with hemorrhoid Maintain high-fiber diet Simethicone Low FODMAP diet Lifestyle and dietary changes NAFLD Reassurance Coding Level of Care Code Est Pt Level 4 (83089) Diagnoses Bloating R14.0 NAFLD (nonalcoholic fatty liver disease) K76.0 Gallbladder polyp K82.4 Constipated K59.00 History of hemorrhoids Z87.19 Time Spent (min) 35 Comment [id number]
[2023-07-01 13:55] VITALS: BP 120/70; PULSE 86; BMI 26.1
== END 2023-07-01 15:14 | disposition home or self-care (01) ==
PROVIDERS: PCP Internal Medicine; Visit Provider Physician Assistant
DX: R14.0 Abdominal distension (gaseous) (principal); K76.0 Fatty (change of) liver, not elsewhere classified; K82.4 Cholesterolosis of gallbladder; K59.00 Constipation, unspecified; Z87.19 Personal history of other diseases of the digestive system
CPT/HCPCS: 99214

== ENCOUNTER → 2023-07-01 13:41 | Outpatient (BNVA) | payer MEDICAID, SELFPAY | PROVIDERS: PCP Internal Medicine; Visit Provider Physician Assistant | DX: R14.0 Abdominal distension (gaseous) (principal); K76.0 Fatty (change of) liver, not elsewhere classified; K82.4 Cholesterolosis of gallbladder; K59.00 Constipation, unspecified; Z87.19 Personal history of other diseases of the digestive system | CPT/HCPCS: 99212 ==

== ENCOUNTER 2024-05-13 17:42 | Outpatient (REF) | payer OTHER, SELFPAY ==
[2024-05-13 20:10] LABS: Leukocytes Stool Qualitative NEGATIVE (NEGATIVE)
[2024-05-14 11:52] LABS: H Pylori Breath Test Negative (Negative)
== END 2024-05-13 17:43 | disposition home or self-care (01) ==
LOC: HO.LNP 17:42
PROVIDERS: Visit Provider Internal Medicine
DX: R73.01 Impaired fasting glucose (principal)
CPT/HCPCS: 83013; 89055

== ENCOUNTER 2024-08-03 14:30 | Outpatient (REF) | payer OTHER, SELFPAY ==
[2024-08-03 16:58] LABS: MANUAL DIFF FLAG NO
[2024-08-03 17:01] LABS: Basophils Percent Auto 0.6 % (0-2); Eosinophils Absolute Auto 0.2 X10*3/uL (0.0-0.4); Eosinophils Percent Auto 2.6 % (0-4); Hematocrit 35.4 % (37.0-47.0); Hemoglobin 11.8 g/dl (12.0-16.0); Imm Gran Abs Auto 0.01 X10*3/uL (0.00-0.03); Imm Gran Pct Auto 0.2 % (0.0-0.4); Lymphocytes Absolute Auto 2.3 X10*3/uL (1.2-4.9); Lymphocytes Percent Auto 37.2 % (20-40); Mean Corpuscular HGB Conc 33.3 g/dl (31.0-35.0); Mean Corpuscular Hemoglobin 30.4 pg (27.0-33.0); Mean Corpuscular Volume 91.2 fL (80.0-98.0); Monocytes Absolute Auto 0.7 X10*3/uL (0.1-1.2); Monocytes Percent Auto 10.9 % (2-11); Neutrophils Percent Auto 48.5 % (45-73); Platelet Count 280 X10*3/uL (160-400); Red Blood Count 3.88 X10*6/uL (4.20-5.50); Red Cell Distribution Width 13.3 % (11.0-16.0); White Blood Count 6.3 X10*3/uL (4.8-10.8)
[2024-08-03 17:20] LABS: Anion Gap 11 (12-20); Blood Urea Nitrogen 10 mg/dL (9-16); Calcium 9.3 mg/dL (8.4-10.2); Carbon Dioxide 24 mmol/L (22-29); Chloride 107 mmol/L (96-108); Estimated Glomerular Filt Rate > 60; Glucose Random 85 mg/dL (60-115); Potassium 3.3 mmol/L (3.3-5.1); Sodium 139 mmol/L (135-145)
[2024-08-03 17:39] LABS: TSH reflex Free T4 1.66 uIU/mL (0.32-4.0)
== END 2024-08-03 14:31 | disposition home or self-care (01) ==
LOC: HO.HHCL 14:30
PROVIDERS: Visit Provider Internal Medicine
DX: R10.13 Epigastric pain (principal); I10 Essential (primary) hypertension; F43.23 Adjustment disorder with mixed anxiety and depressed mood
CPT/HCPCS: 36415; 80048; 84443; 85025

== ENCOUNTER 2025-06-04 14:14 | Outpatient (AMB) | payer MEDICAID, SELFPAY ==
--- NOTE | 2025-06-04 14:17 | A.OFFVIS_ITS ---
Vital Signs 06/04/25 14:20 Height 5 ft 1 in Weight 137 lb BMI 25.9 BP 102/66 Blood Pressure Location Lt brachial Position Sitting Pulse 86 Intake Visit Reasons: Gerd Follow up was RUTH pt Intake Note: Patient complex follow up for GERD, Violeta ching was 07/01/2023, and last EGD by Dr. Zambrano on 10/16/2022. Patient cc: acid reflux on and off, afer eating she cough a lot and clearing her throat, colon discomfort with palpitations on her rectum. Base Filler Operator Required: Yes Base Filler Operator Name: Cristiano SHARON Accompanied by: Self / Same As Patient Allergies No Known Allergies (No Known Allergies*) Allergy (Verified 06/04/25 14:17) Medication List - Last Reconciled 06/04/25 by Romelia Doshi CNP amlodipine 10 mg PO DAILY aspirin 81 mg PO DAILY esomeprazole magnesium 40 mg PO DAILY 30 days HPI HPI Gerd Follow up was RUTH pt: Details: Patient is a 39-year-old with PMH of hypertension. Last visit with GIBRAN Cristobal 07/01/2023 for abdominal bloating. Patient with history of acid reflux since 2018 presents with ongoing heartburn and intermittent bloating, most notable after meals. Describes a burning retrosternal sensation that occasionally radiates upwards and, at times, is associated with an urge to cough and clear the throat, particularly postprandially. Frequency of symptoms not daily, but ongoing for several years; occasionally triggered by dietary indiscretions, though not consistently linked to specific foods. No reported regurgitation or dysphagia. Previously trialed omeprazole (ineffective), then esomeprazole, which was discontinued due to an episode of pronounced tachycardia?prompted cardiology evaluation with normal findings, no ongoing cardiac management. Upper endoscopy in Sep 2022 revealed a benign gastric nodule, ongoing esophagitis, but no Tran?s esophagus, although this had been present on a 2020 endoscopy and resolved by 2022. Reports difficulty tolerating large fluid intake because of reflux Additional new complaint of rectal pain and a pulsating sensation for the last month, temporally associated with constipation?characterized by harder, smaller stools, increased straining, though maintaining one bowel movement daily. . No sexual activity or recent medication/diet/activity changes reported. 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 Patient denies: fever/chills, n/v, appetite changes, regurgitation,dysphasia, unintentional wt loss, ab pain or melena/hematochezia. [facility] Medical History Acid reflux Bloating Hemorrhoids Hernia HTN (hypertension) Surgical History Hx of hernia repair History of esophagogastroduodenoscopy (EGD) H/O colonoscopy Hx of tubal ligation Family History Mother Hypertension Maternal Grandmother Colon cancer Social History Household Members: Children Alcohol intake: never Patient Tobacco Use Status: Former Tobacco user Tobacco use type: Cigarette Years Smoked: 1 Current occupational status: employed Current occupation: [employer] Systems Const Reports as per HPI ENT Reports as per HPI Card Reports as per HPI Resp Reports as per HPI GI Reports as per HPI Reports as per HPI Physical Exam Vital Signs: Last Vital Signs Pulse 86 06/04/25 14:20 BP 102/66 06/04/25 14:20 BMI result Body Mass Index 25.9 Const General: healthy appearing, no acute distress and well developed Nutritional Appearance: average body habitus Orientation/consciousness: patient oriented x3 HEENT Head: Yes normal to inspection, Yes normocephalic and Yes atraumatic Face and sinus: Yes normal facial exam Eyes General: appearance normal, both eyes and all related structures Neck Neck: Yes normal visual inspection Resp Effort & Inspection: normal respiratory effort, able to speak in complete sentences, no tracheal deviation and symmetric chest movement Cardio Jugular venous distension: no JVD Heart sounds: Murmur heart sound present GI Inspection: Yes normal to inspection and No distended Palpation (GI): Soft to palpation, not firm, nontender and No hepatosplenomegaly present Auscultation: normoactive bowel sounds Rectal Exam - Female: deferred Neuro General: patient oriented x3 Gait exam (Neuro): Normal gait present Psych Appearance: grossly normal Mental Status: mental status grossly normal Speech and movement: Normal speech and movement present Affect: normal affect Attitude: cooperative Thought process: Normal thought process present Thought content: Normal thought content present Insight: Good insight present (Psych) Judgement: Good judgement present (Psych) Results Reviewed Results Reviewed: Date of Service: 05/31/23 Procedure(s): US abdomen complete Accession Number(s): [id number] cc: Ekta Perez MD; Violeta Phillips PA-C~ EXAMINATION: US ABDOMEN COMPLETE CLINICAL INFORMATION: Right upper quadrant pain. COMPARISON: CT abdomen and pelvis without contrast 06/05/2018. TECHNIQUE: Real-time imaging of the abdominal viscera. Limited visualization due to bowel gas. FINDINGS: PANCREAS: Limited visualization. ABDOMINAL AORTA: Nonaneurysmal. Limited visualization of the aortic bifurcation. INFERIOR VENA CAVA: Visualized portions are normal. LIVER: Mild diffuse increase in heterogeneity and echogenicity of the liver is characteristic of primary hepatocellular disease, possibly due to hepatic steatosis and further limits visualization. GALLBLADDER: A 0.2 cm gallbladder polyp. No gallbladder wall thickening. COMMON BILE DUCT: Normal in caliber measuring 0.2 cm in diameter. RIGHT KIDNEY: No hydronephrosis. No renal calculi. Limited visualization. The kidney measures 10.6 cm in maximum dimension. LEFT KIDNEY: Borderline mild left caliectasis. No renal calculi. Limited visualization. The kidney measures 11.9 cm in maximum dimension. SPLEEN: Normal. The spleen measures 8.0 cm in maximum dimension. FREE FLUID: None. US/US abdomen complete IMPRESSION: 1. A 0.2 cm gallbladder polyp. 2. Mild diffuse increase in heterogeneity and echogenicity of the liver is characteristic of primary hepatocellular disease, possibly due to hepatic steatosis and further limits visualization. 3. Borderline mild left renal caliectasis. No renal calculi. Operative Note Date of Service: 10/16/22 Narrative: Procedure: Esophagogastroduodenoscopy Endoscopist: Toyin Zambrano MD Indication: Tran's esophagus Anesthesia Provider: Dr Betsy Vasquez Anesthesia Type: MAC EGD Procedure: The procedure, indications, preparation and potential complications were reviewed with the patient, who indicated understanding and gave written informed consent to proceed. A certified court interpreter assisted with the encounter. A physical exam was performed. A distal attachment cap was affixed to the tip of the gastroscope and it was the endoscope was then introduced through the mouth, and advanced to the second part of duodenum. The mucosa was carefully examined on slow withdrawal of the endoscope. The patient tolerated the procedure well. There were no immediate complications. EGD Findings: Esophagus: The Z line was at 38 cm. Bell pink colored mucosa extended beyond the Z line to 36 cm. Villous changes were noted on high definition white light and narrow band imaging. There was also a 1 cm nodule seen just at the GEJ at 38 cm. Cold forceps biopsies were taken from the nodule, 37 cm and 36 cm. Additionally, WATS-3D sampling was obtained and sent to [facility]. Stomach: Normal mucosa was noted in the stomach. Random gastric biopsies were taken to rule out H Pylori infection. Duodenum: Normal mucosa was noted in the whole of the examined duodenum. Biopsies were taken from duodenal bulb and second portion of the duodenum to rule out celiac sprue. EGD Impressions: Esophageal nodule (biopsy) (wats-3d) R/o tran's with dysplasia Normal stomach (biopsy) Normal duodenum (biopsy) Recommendations: Follow biopsy results. Our office will call or send a letter with results within 7-10 days. If presence of dysplasia is confirmed, pt will need EMR +/- ablation for treatment. Continue PPI therapy. Avoid NSAIDs. PAHTOLOGY: Collected: 10/16/22 Location: [facility] Received: 10/16/22 Diagnosis A. Duodenum, biopsy: Duodenal mucosa with mildly increased intraepithelial lymphocytes and preserved villous architecture. See comment. B. Stomach, random, biopsy: Antral-type and oxyntic mucosa with mild chronic inactive inflammation; no Helicobacter organisms seen. C. Esophagus, 36 cm, biopsy: - Cardiac-type mucosa with moderate chronic, focally active, inflammation; no intestinal metaplasia seen. - Squamous mucosa within normal limits. D. Esophagus, 37 cm, biopsy: - Cardiofundic-type mucosa with mild chronic inactive inflammation; no intestinal metaplasia seen. - Chronic esophagitis. E. GE junction, nodule, biopsy: - Cardiofundic-type mucosa with mild chronic inactive inflammation; no intestinal metaplasia seen. - No squamous epithelium identified. COMMENT: The findings in the duodenum are non-specific. The differential diagnosis is broad and includes infection (e.g. viral or H. pylori), medication/drugs (e.g. NSAIDs), gluten sensitivity/celiac disease, bacterial overgrowth, tropical sprue, immunodeficiency syndromes (e.g. IgA deficiency, CVID), autoimmune enteropathy, Crohns and collagen vascular disease, among others. Please correlate with clinical and other laboratory findings. The Clinical History Pre-Op Dx: Reflux, Tran's Post-Op Dx: Esophageal nodule, r/o Tran's, r/o celiac Operative Note Date of Service: 06/14/21 Narrative: Procedure Description: EGD FLEXIBLE TRANSORAL UPPER GASTROINTESTINAL ENDOSCOPY UPPER ENDOSCOPY Consent: Indications for the procedure and potential complications of bleeding, perforation, reaction to medications and missed diagnosis were discussed with the patient and informed consent was obtained. Instrument: Olympus GIF H 190 J mid size upper endoscope Monitoring: Vital signs and clinical assessment, continuous EKG monitoring, Pulse oximetry, Carbon Dioxide monitoring and blood pressure monitoring were done throughout the procedure. Procedure: The patient was placed in the left lateral decubitis position and pre-procedure medications were administered and a bite block was placed. The endoscope was inserted into the mouth and advanced under direct vision to the third part of duodenum. A careful inspection was made as the upper endoscope was withdrawn including a retroflexed examination of the proximal stomach; Findings and interventions are described below. Findings: Larynx:normal Esophagus: GE junction at 38 cm, diaphragm hiatus at 38 cm, LA grade A esophagitis note,d bx taken from GEJ and random esophagus. Small esophageal inlet patch noted Stomach: Patchy gastric erythema and atrophic areas. Biopsies were obtained. Grade 2 flap valve on retroflexed examination of the cardia. Duodenum: Normal bulb and descending duodenum, bx taken Intervention: Biopsies as noted above Impression/Findings: gastritis esophagitis inlet patch of esophagus PLAN: await bx results check PPI compliance PATHOLOGY Collected: 06/14/21 Location: [facility] [place] Received: 06/14/21 Diagnosis A. Duodenum, biopsy: Duodenal mucosa with mildly increased intraepithelial lymphocytes and preserved villous architecture. See comment. B. Stomach, biopsy: Antral- type and oxyntic mucosa with moderate chronic inactive inflammation; no Helicobacter organisms seen. C. GE junction, biopsy: - Tran esophagus with background moderate chronic active inflammation. - No dysplasia seen. - Squamous mucosa within normal limits. D. Esophagus, random, biopsy: Squamous epithelium within normal limits; no inflammation seen. COMMENT: The findings in the duodenum are non-specific. The differential diagnosis is broad and includes infection (e.g. viral or H. pylori), medication/ drugs (e.g. NSAIDs), gluten sensitivity/ celiac disease, bacterial overgrowth, tropical sprue, immunodeficiency syndromes (e.g. IgA deficiency, CVID), autoimmune enteropathy, Crohns and collagen vascular disease, among others. Please correlate with clinical and other laboratory findings. Clinical History Pre-Op Dx: Nausea, vomiting Post-Op Dx: Esophagitis, esophageal inlet patch, gastritis Assessment & Plan Assessment & Plan (1) Acid reflux: Comment: 09/27/22 EGD: Esophageal nodule, r/o Tran's, r/o celiac. 06/14/21EGD:Tran esophagus w/Esophagitis, esophageal inlet patch, gastritis Code(s): K21.9 - Gastro-esophageal reflux disease without esophagitis Category: Medical Qualifiers: Esophagitis bleeding: without hemorrhage Esophagitis presence: with esophagitis Qualified Code(s): K21.00 - Gastro-esophageal reflux disease with esophagitis, without bleeding Plan: Persistent heartburn and burning despite prior PPI therapy, endoscopic history of esophagitis, prior Tran?s now resolved. Additional Testing: None specifically for GERD at this time. Medication Management: Start pantoprazole as new PPI. Advise to take on empty stomach, 30 min before eating. Cease medication and report if tachycardia recurs. Lifestyle Recommendations: Avoid dietary triggers, increase smaller sips of water throughout the day, elevate head during sleep if nighttime symptoms, and maintain healthy body weight. Follow-Up: Return after completion of gallbladder U/S and laboratory workup or sooner if symptoms worsen or drug intolerance. Assess medication efficacy and side effects at next visit. (2) Constipated: Code(s): K59.00 - Constipation, unspecified Category: Medical Qualifiers: Constipation type: unspecified constipation type Qualified Code(s): K59.00 - Constipation, unspecified Plan: New onset rectal discomfort coinciding with harder stools and straining. Additional Testing: Schedule rectal exam at next visit. Routine labs including metabolic panel, LFTs, TSH, and CBC for general assessment. Repeat gallbladder ultrasound (history of polyp, last done ~2 years ago). Medication Management: None started at this time by patient preference; may consider OTC fiber supplement if dietary efforts insufficient. Lifestyle Recommendations: Increase dietary fiber (fruits, vegetables, beans), gradual uptitration of water intake as tolerated (small, frequent sips); promote regular physical activity. Pamphlet provided, encourage use of Bulgarian translation if needed. Follow-Up: Rectal exam at next visit; review of labs and ultrasound results. Advise to return if pain worsens, bleeding develops, or constipation persists. (3) Gallbladder polyp: Code(s): K82.4 - Cholesterolosis of gallbladder Category: Medical Plan: As above Plan Follow-up after ultrasound or sooner as needed Time: I spent a total of 60 minutes on the date of encounter which includes: Preparing to see the patient (reviewed previous documentation, test results and medical history) Performing a medically appropriate exam and/or evaluation Ordering medications, tests, and procedures Documenting clinical information in the health record Orders: Orders Complete Blood Count Auto Diff 06/04/25 K76.0 - Fatty (change of) liver, not elsewhere classified, K82.4 - Cholesterolosis of gallbladder, R10.13 - Epigastric pain US abdomen complete 06/04/25 K76.0 - Fatty (change of) liver, not elsewhere classified, K82.4 - Cholesterolosis of gallbladder, R10.13 - Epigastric pain Comprehensive [place]. Panel Fast 06/04/25 K76.0 - Fatty (change of) liver, not elsewhere classified, K82.4 - Cholesterolosis of gallbladder, R10.13 - Epigastric pain TSH reflex Free T4 06/04/25 K76.0 - Fatty (change of) liver, not elsewhere classified Medications: New pantoprazole Take one tablet daily on an empty stomach, delay food 30 minutes. 20 mg PO DAILY 90 tabs 1RF Coding Level of Care Code Established Pt Est Pt Level 5 (27290) Patient Type Established Diagnoses Gastroesophageal reflux disease with esophagitis without hemorrhage K21.00 Esophagitis bleeding: without hemorrhage Esophagitis presence: with esophagitis Constipation, unspecified constipation type K59.00 Constipation type: unspecified constipation type Gallbladder polyp K82.4
[2025-06-04 14:20] VITALS: BP 102/66; PULSE 86; BMI 25.9
== END 2025-06-04 15:23 | disposition home or self-care (01) ==
LOC: HO.HGI 14:14
PROVIDERS: PCP Internal Medicine; Visit Provider Nurse Practitioner Family
DX: K21.00 Gastro-esophageal reflux disease with esophagitis, without bleeding (principal); K59.00 Constipation, unspecified; K82.4 Cholesterolosis of gallbladder
CPT/HCPCS: 99215

== ENCOUNTER → 2025-06-04 14:14 | Outpatient (BNVA) | payer MEDICAID, SELFPAY | PROVIDERS: PCP Internal Medicine; Visit Provider Nurse Practitioner Family | DX: K21.9 Gastro-esophageal reflux disease without esophagitis (principal); K59.00 Constipation, unspecified; K76.0 Fatty (change of) liver, not elsewhere classified; R10.13 Epigastric pain; K82.4 Cholesterolosis of gallbladder | CPT/HCPCS: 99212 ==